=== PATIENT | male | born 1940 | race Caucasian/White ===

== ENCOUNTER 2017-07-04 02:43 | Emergency (ER) | payer MEDICARE, OTHER ==
--- NOTE | 2017-07-04 03:02 | ERPHSYRPT ---
- History of Present Illness Time Seen by Provider: 07/04/17 02:58 Source: patient, family Patient Subjective Stated Complaint: Pt arrives to ER with c/o tongue swelling that began at 2300 and states has become worse over night states has swelling into right cheek. Denies difficulty breathing or swallowing at this time. States is uncomfortable Triage Nursing Assessment: minor tongue swelling, non-obstructive. Airway patent. This RN cannot appreciate any swelling to face. Physician History: This is a 76-year-old white male with history of high blood pressure diabetes arthritis polyps He arrives with complaint of swelling to the right side of his tongue since 11: 00 this evening. He states that he had eaten a gas ex tablets prior to onset of the swelling. He has no shortness of breath. He has no skin rash. . Past medical history includes high blood pressure, diabetes type 2, arthritis , polyps, kidney stones, patient's old chart shows a history of left venous stasis ulcers, patient disputes this.also history of femoral aneurisms. Past surgical history includes right rotator cuff degenerative disc disease of the neck sinus surgery and knee arthroscopically Timing/Duration: other (11:00 last night) Severity: moderate Modifying Factors: Improves With: nothing Associated Symptoms: No nausea, No vomiting, No abdominal pain, No shortness of breath, No heartburn, No diaphoresis, No cough, No chills, No chest pain, No fever, No headaches, No loss of appetite, No malaise, No rash, No syncope, No seizure Allergies/Adverse Reactions: Sulfa (Sulfonamide Antibiotics) [Sulfa(Sulfonamide Antibiotics)] Allergy (Mild, Verified 07/04/17 02:55) Rash codeine [Codeine] Allergy (Unknown, Verified 07/04/17 02:55) Shortness of Breath Home Medications: Acetaminophen 325 mg [Tylenol 325 mg] 650 mg PO STAT 10/23/15 [History] Allopurinol 300 mg [Zyloprim 300 mg] 300 mg PO DAILY 10/23/15 [History] Aspirin 81 mg PO DAILY 10/23/15 [History] Carvedilol [Coreg] 6.25 mg PO BID 10/23/15 [History] Desonide 15 gm TP DAILY 10/23/15 [History] Furosemide 40 mg [Lasix 40 MG] 40 mg PO DAILY 10/23/15 [History] Isosorbide Mononitrate [Isosorbide Mononitrate ER] 60 mg PO DAILY 10/23/15 [ History] Lisinopril 40 mg PO BID 10/23/15 [History] Magnesium Oxide [Magnesium] 400 mg PO DAILY 10/23/15 [History] Potassium Chloride 20 Meq Tab [Potassium Chloride 20 MEQ TABLET] 20 meq PO DAILY 10/23/15 [History] Fluticasone Propionate [Flonase Nasal] 50 mcg IN Q12H PRN PRN 07/04/17 [History] Hx Tetanus, Diphtheria Vaccination/Date Given: Yes Hx Influenza Vaccination/Date Given: No Hx Pneumococcal Vaccination/Date Given: No - Review of Systems Constitutional: No Fever, No Chills Eyes: No Symptoms Ears, Nose, & Throat: Other (swelling of the tongue) Respiratory: No Cough, No Dyspnea Cardiac: No Chest Pain, No Edema, No Syncope Abdominal/Gastrointestinal: No Abdominal Pain, No Nausea, No Vomiting, No Diarrhea Genitourinary Symptoms: No Dysuria Musculoskeletal: No Back Pain, No Neck Pain Skin: No Rash Neurological: No Dizziness, No Focal Weakness, No Sensory Changes Psychological: No Symptoms Endocrine: No Symptoms All Other Systems: Reviewed and Negative - Past Medical History Pertinent Past Medical History: Yes Neurological History: No Pertinent History ENT History: Cataracts Cardiac History: Aneurysm, Hypertension Respiratory History: No Pertinent History Endocrine Medical History: Diabetes Type II Musculoskeletal History: Arthritis GI Medical History: Polyps History: Other Psycho-Social History: No Pertinent History Male Reproductive Disorders: No Pertinent History Other Medical History: kidney stones. left leg venous STASIS ULCER - Past Surgical History Past Surgical History: Yes Neuro Surgical History: No Pertinent History Cardiac: No Pertinent History Respiratory: No Pertinent History Gastrointestinal: No Pertinent History Genitourinary: No Pertinent History Musculoskeletal: Orthopedic Surgery Male Surgical History: No Pertinent History Other Surgical History: right rotator cuff. melanoma right shoulder. c6 herniated repair. c7 ruptured repair. sinus surgery. 2 left knee scopes. 1 right knee scope. right hip replace. Femoral artery aneurysm repair - Social History Smoking Status: Never smoker Exposure to second hand smoke: No Drug Use: none Patient Lives Alone: No - Nursing Vital Signs Nursing Vital Signs: Initial Vital Signs Temperature 98.7 F 07/04/17 02:48 Pulse Rate 86 07/04/17 02:48 Respiratory Rate 18 07/04/17 02:48 Blood Pressure 183/120 07/04/17 02:48 O2 Sat by Pulse Oximetry 95 07/04/17 02:48 Pain Scale Pain Intensity 5 - Physical Exam General Appearance: mild distress Eye Exam: PERRL/EOMI, eyes nml inspection Ears, Nose, Throat Exam: other (swelling of the right side of the tongue) Neck Exam: normal inspection, non-tender, supple, full range of motion Respiratory Exam: normal breath sounds, lungs clear, No respiratory distress Cardiovascular Exam: regular rate/rhythm, normal heart sounds, normal peripheral pulses Gastrointestinal/Abdomen Exam: soft, normal bowel sounds, No tenderness, No mass Back Exam: normal inspection, normal range of motion, No CVA tenderness, No vertebral tenderness Extremity Exam: normal inspection, normal range of motion, pelvis stable Neurologic Exam: alert, oriented x 3, cooperative, cook supervisor II-XII nml as tested, normal mood/affect, nml cerebellar function, nml station & gait, sensation nml, No motor deficits Skin Exam: normal color, warm, dry, No rash Lymphatic Exam: No adenopathy SpO2 Interpretation: normal (95%) SpO2: 95 Oxygen Delivery: Room Air - Course Nursing assessment & vital signs reviewed: Yes EKG Interpreted by Me: RATE (85 bpm), Sinus Rhythm, NORMAL AXIS, Other (EKG: Sinus rhythm 85 beats per minute, normal axis, no acute ST or T wave changes, essentially normal EKG) Ordered Tests: Active Orders 24 hr Category Date Time Status EKG-ER Only STAT Care 07/04/17 02:52 Active IV Insertion STAT Care 07/04/17 02:52 Active CBC W DIFF Stat Lab 07/04/17 03:00 Completed CMP Stat Lab 07/04/17 03:00 Completed Respiratory Nebulizer STAT RT 07/04/17 03:10 Completed Medication Summary Generic Name Dose Route Start Last Admin Trade Name Freq PRN Reason Stop Dose Admin Sodium Chloride 1,000 mls @ 100 mls/hr 07/04/17 03:00 07/04/17 03:23 Sodium Chloride 0.9% 1000 Ml IV 08/03/17 02:59 100 mls/hr .Q10H VIRI Administration Discontinued Medications Generic Name Dose Route Start Last Admin Trade Name Freq PRN Reason Stop Dose Admin Clonidine 0.1 mg 07/04/17 05:00 07/04/17 05:06 Catapres 0.1 Mg PO 07/04/17 05:01 0.1 mg STAT ONE Administration Clonidine Confirm 07/04/17 05:03 Catapres 0.1 Mg Administered 07/04/17 05:04 Dose 0.1 mg .ROUTE .STK-MED ONE Diphenhydramine HCl 25 mg 07/04/17 02:52 07/04/17 03:23 Benadryl 50 Mg/Ml IV 07/04/17 02:53 25 mg STAT ONE Administration Diphenhydramine HCl Confirm 07/04/17 03:13 Benadryl 50 Mg/Ml Administered 07/04/17 03:14 Dose 50 mg .ROUTE .STK-MED ONE Diphenhydramine HCl Confirm 07/04/17 03:22 Benadryl 50 Mg/Ml Administered 07/04/17 03:23 Dose 50 mg .ROUTE .STK-MED ONE Diphenhydramine HCl 25 mg 07/04/17 03:14 07/04/17 04:12 Benadryl 50 Mg/Ml IV 07/04/17 03:15 Not Given STAT ONE Diphenhydramine HCl 25 mg 07/04/17 03:26 07/04/17 03:23 Benadryl 50 Mg/Ml IV 07/04/17 03:27 25 mg STAT ONE Administration Epinephrine Confirm 07/04/17 03:35 Racepinephrine Inh Solution 2.25% Administered 07/04/17 03:36 Dose 0.5 ml IH .STK-MED ONE Epinephrine 0.5 ml 07/04/17 03:08 07/04/17 03:38 Racepinephrine Inh Solution 2.25% IH 07/04/17 03:09 0.5 ml STAT ONE Administration Famotidine Confirm 07/04/17 03:13 Pepcid 20 Mg Vial Administered 07/04/17 03:14 Dose 20 mg IV .STK-MED ONE Famotidine 20 mg 07/04/17 03:12 07/04/17 03:23 Pepcid 20 Mg Vial IV 07/04/17 03:13 20 mg STAT ONE Administration Methylprednisolone Sodium Succinate 125 mg 07/04/17 02:52 07/04/17 03:23 Solu-Medrol 125 Mg IV 07/04/17 02:53 125 mg STAT ONE Administration Methylprednisolone Sodium Succinate Confirm 07/04/17 03:13 Solu-Medrol 125 Mg Administered 07/04/17 03:14 Dose 125 mg .ROUTE .STK-MED ONE Sodium Chloride Confirm 07/04/17 03:35 Sodium Chloride 3 Ml Ud Nebules Administered 07/04/17 03:36 Dose 3 ml IH .STK-MED ONE Lab/Rad Data: Laboratory Result Diagrams 07/04/17 03:00 07/04/17 03:00 Laboratory Results 07/04/17 07/04/17 Range/Units 03:00 03:00 WBC 7.9 (4.0-10.5) K/mm3 RBC 4.29 (4.1-5.6) M/mm3 Hgb 13.6 (12.5-18.0) gm/dl Hct 39.9 L (42-50) % MCV 93.0 (78-100) fl MCH 31.7 (26-32) pg MCHC 34.1 (32-36) g/dl RDW 13.7 (11.5-14.0) % Plt Count 184 (150-450) K/mm3 MPV 11.2 H (6-9.5) fl Gran % 72.5 H (36.0-66.0) % Eos # (Auto) 0.16 (0-0.5) Absolute Lymphs (auto) 1.33 (1.0-4.6) Absolute Monos (auto) 0.64 (0.0-1.3) Lymphocytes % 16.9 L (24.0-44.0) % Monocytes % 8.1 (0.0-12.0) % Eosinophils % 2.0 (0.00-5.0) % Basophils % 0.5 (0.0-0.4) % Absolute Granulocytes 5.70 (1.4-6.9) Basophils # 0.04 (0-0.4) Sodium 138 (137-145) mmol/L Potassium 4.0 (3.5-5.1) mmol/L Chloride 102 (98-107) mmol/L Carbon Dioxide 26 (22-30) mmol/L Anion Gap 14.4 (5-15) MEQ/L BUN 26 H (9-20) mg/dL Creatinine 0.94 (0.66-1.25) mg/dL Estimated GFR > 60.0 ML/MIN Glucose 168 H (74-106) mg/dL Calcium 9.4 (8.4-10.2) mg/dL Total Bilirubin 0.40 (0.2-1.3) mg/dL AST 33 (17-59) U/L ALT 43 (0-50) U/L Alkaline Phosphatase 77 (38-126) U/L Serum Total Protein 7.2 (6.3-8.2) g/dL Albumin 4.2 (3.5-5.0) g/dL - Progress Progress: improved Progress Note: 07/04/17 05:01 This is a 76-year-old white male with history of diabetes high blood pressure arthritis polyps kidney stones he arrives with complaint of swelling of the right side of his tongue since around 11:00. He stated that he had taken Gas-X tablet prior to beginning the swelling. It is noted that the patient is on lisinopril. On arrival patient had a moderate swelling of the right side of his tongue airway was clear. Patient was given Benadryl 50 mg IV, Pepcid 20 mg IV,. Patient was given a racemic epinephrine treatment. Patient started on normal saline 100 mL per hour. Patient is now feeling much better patient's blood pressure was initially elevated at 183/120 patient's family does state he has some time to white coat syndrome blood pressure has come down to 173/98. He is feeling much better. I have repeated the patient's chart he is coming here in the past he has received clonidine in the past Will give patient 1 clonidine tablet. Will plan on patient released turning home he is to take Benadryl 50 mg orally every 6 hours hold for excessive somnolence. Patient states that Dr. Daley prescribes his high blood pressure medications. I contacted Dr. Garcia, who was tong hooker for And of discussed the patient's case with him. He recommended that the patient stop his lisinopril. He is to increase his Coreg to 12.5 mg orally twice a day He is to start Norvasc 10 mg orally daily. He is to follow-up with Dr. London in one week. (The patient's will contact Dr. London's office this morning) Will have patient continue Benadryl - Departure Time of Disposition: 05:05 Departure Disposition: Home Clinical Impression: Angioedema Qualifiers: Encounter type: initial encounter Qualified Code(s): T78.3XXA - Angioneurotic edema, initial encounter Condition: Fair Critical Care Time: No Referrals: PACHECO SRINIVASAN [Primary Care Provider] - Additional Instructions: Return home. Benadryl 50 mg orally every 6 hours for 2-3 days hold for excessive somnolence. Contact Dr. Daley in the morning and arrange follow-up . Return for acute distress or for severe symptoms or for any problems. stop lisinopril. Increase Coreg to 12.5 mg orally twice a day(two 6.25 mg orally twice a day) Start Norvasc 10 mg orally daily. Prescriptions: Amlodipine Besylate 10 mg [Norvasc 10 MG] 10 mg PO DAILY #15 tablet
[2017-07-04] MEDS ORDERED: BENADRYL 50 MG/ML ONE ×2 (03:13→03:22)
[2017-07-04] MEDS ORDERED: Sodium Chloride 0.9% 1000 ML 1,000 ML ONE (03:13)
[2017-07-04] MEDS ORDERED: solu-MEDROL 125 MG ONE (03:13)
[2017-07-04] MEDS ORDERED: Pepcid 20 MG VIAL IV ONE (03:13)
[2017-07-04 03:17] LABS: BASOPHIL % 0.5 % (0.0-0.4); Basophil (Absolute #) 0.04 (0-0.4); Eosinophil (Absolute #) 0.16 (0-0.5); Granulocytes % 72.5 % (36.0-66.0); Hematocrit 39.9 % (42-50); Hemoglobin 13.6 gm/dl (12.5-18.0); Lymphocyte (Absolute #) 1.33 (1.0-4.6); Lymphocytes % 16.9 % (24.0-44.0); Mean Corpuscular Hemoglobin 31.7 pg (26-32); Mean Corpuscular Hgb Concent. 34.1 g/dl (32-36); Mean Platelet Volume 11.2 fl (6-9.5); Monocyte (Absolute #) 0.64 (0.0-1.3); Monocytes % 8.1 % (0.0-12.0); Platelet Count 184 K/mm3 (150-450); Red Blood Count 4.29 M/mm3 (4.1-5.6); Red Cell Distribution Width 13.7 % (11.5-14.0); White Blood Count 7.9 K/mm3 (4.0-10.5)
[2017-07-04] MEDS: Pepcid 20 MG VIAL IV ONE (03:23)
[2017-07-04] MEDS: solu-MEDROL 125 MG IV ONE (03:23)
[2017-07-04] MEDS: Sodium Chloride 0.9% 1000 ML 1,000 ML IV SCH (03:23)
[2017-07-04] MEDS: BENADRYL 50 MG/ML IV ONE ×3 (03:23→04:12)
[2017-07-04] MEDS ORDERED: Sodium Chloride 3 ML UD NEBULES IH ONE (03:35)
[2017-07-04] MEDS ORDERED: Racepinephrine INH Solution 2.25% IH ONE (03:35)
[2017-07-04 03:38] LABS: ALBUMIN 4.2 g/dL (3.5-5.0); ALKALINE PHOSPHATASE 77 U/L (38-126); ANION GAP 14.4 MEQ/L (5-15); BLOOD UREA NITROGEN 26 mg/dL (9-20); CHLORIDE 102 mmol/L (98-107); Calcium 9.4 mg/dL (8.4-10.2); Carbon Dioxide 26 mmol/L (22-30); Creatinine 1 0.94 mg/dL (0.66-1.25); Glucose 168 mg/dL (74-106); SGOT/AST 33 U/L (17-59); SGPT/ALT 43 U/L (0-50); SODIUM 138 mmol/L (137-145); Total Protein 7.2 g/dL (6.3-8.2)
[2017-07-04] MEDS: Racepinephrine INH Solution 2.25% IH ONE (03:38)
[2017-07-04] MEDS ORDERED: Catapres 0.1 MG ONE (05:03)
[2017-07-04] MEDS: Catapres 0.1 MG PO ONE (05:06)
[2017-07-04 05:34] VITALS: BP 162/90; PULSE 83; O2SAT 94
== END 2017-07-04 05:46 | disposition home or self-care (01) ==
LOC: ED 02:43
DX: T78.3XXA Angioneurotic edema, initial encounter (principal); Z79.899 Other long term (current) drug therapy
CPT/HCPCS: 36000; 36415; 80053; 85025; 93005; 94640; 96374; 96375; 99284; J1200; J2930; A9270-GY

== ENCOUNTER 2020-07-26 22:18 | Emergency (ER) | payer MEDICARE, OTHER ==
[2020-07-26] MEDS ORDERED: Hydromorphone 1 mg/ml Injection IV ONE (22:39)
[2020-07-26] MEDS ORDERED: Zofran 4 MG/2 ML VIAL IV ONE (22:40)
[2020-07-26] MEDS ORDERED: Zofran 4 MG/2 ML VIAL ONE (22:56)
[2020-07-26] MEDS ORDERED: Hydromorphone 1 mg/ml Injection ONE (22:56)
[2020-07-26 23:10] LABS: Appearance CLEAR (CLEAR); Bilirubin NEGATIVE (NEGATIVE); Blood NEGATIVE Ery/ul (0-5); Glucose NEGATIVE (NEGATIVE); Ketones NEGATIVE (NEGATIVE); Leukocyte Esterase TRACE (NEGATIVE); Mucus SLIGHT /HPF (NEGATIVE); Nitrite NEGATIVE (NEGATIVE); Protein,Urine Dip NEGATIVE (Negative); Specific Gravity 1.025 (1.005-1.025); Urobilinogen 2 mg/dL (0-1)
--- NOTE | 2020-07-26 23:14 | ERPHSYRPT ---
- History of Present Illness Source: patient, other () Exam Limitations: no limitations Patient Subjective Stated Complaint: pt states "I was bending down and twisted my back." Triage Nursing Assessment: pt came into the er; pt is axo x4; c/o lower back pain; pt states 10/10 pain to lower back; pt states that his back began to hurt a week prior; pt states that he was bending over drying off his legs when he twisted his back; pt states that he has history of ruptured discand herniated disc; pt has limited ROM to back; tenderness present to lower back; hypertensive Physician History: 79 yo wm w Lumbar pain x 1 wk which is worse tonight. Pain to the left of his inferior L-spine and is rated a 10 on scale. It radiates slightly to his L buttock. He denies dysuria/hematuria/fever/N/V/chest pain/shortness of breath. He played golf 4 days ago, and his pain has progressed. It is worse w bending. He does have a h/o of aneurism repair in proximal B extremities and possibly, in his abdomen. He denies incontinence/foot drop/decreased sensation. Timing/Duration: other (1wk, worse over last 1-2 days) Method of Injury: unknown Quality: sharp Back Pain Location: lumbar spine Back Pain Radiation: buttocks Severity of Pain-Max: severe Severity of Pain-Current: severe Modifying Factors: Improves With: movement (Twisting) Associated Symptoms: lower back pain, No fever, No chills, No sweating, No urinary incontinence, No loss of bowel control, No constipation, No nausea, No vomiting, No problems urinating, No light-headedness, No dizziness, No sensory/motor loss, No tingling in legs/feet, No muscle spasms Previous symptoms: no prior history Allergies/Adverse Reactions: Sulfa (Sulfonamide Antibiotics) [Sulfa(Sulfonamide Antibiotics)] Allergy (Mild, Verified 07/26/20 22:21) Rash codeine [Codeine] Allergy (Unknown, Verified 07/26/20 22:21) Shortness of Breath Home Medications: Allopurinol 300 mg [Zyloprim 300 mg] 300 mg PO DAILY 10/23/15 [History] Aspirin 81 mg PO DAILY 10/23/15 [History] Carvedilol [Coreg] 6.25 mg PO TID 10/23/15 [History] Furosemide 40 mg [Lasix 40 MG] 40 mg PO DAILY 10/23/15 [History] Isosorbide Mononitrate [Isosorbide Mononitrate ER] 60 mg PO DAILY 10/23/15 [History] Magnesium Oxide [Magnesium] 400 mg PO DAILY 10/23/15 [History] Potassium Chloride 20 Meq Tab [Potassium Chloride 20 MEQ TABLET] 20 meq PO DAILY 10/23/15 [History] Acetaminophen 500 mg [Tylenol Extra Strength 500 mg] 500 mg PO DAILY PRN PRN 07/26/20 [History] Amlodipine Besylate 10 mg [Norvasc 10 MG] 5 mg PO DAILY 07/26/20 [History] Ammonium Lactate/Emu Oil [Emu-Lac Hydrating Cream] 20 ml TOP DAILY 07/26/20 [History] Atorvastatin Calcium 20 mg PO DAILY 07/26/20 [History] Docusate Sodium 100 mg [Colace 100 MG] 100 mg PO BID 07/26/20 [History] Metformin HCl 500 mg [Glucophage 500 MG] 500 mg PO BID 07/26/20 [History] Mirabegron [Myrbetriq] 25 mg PO DAILY 07/26/20 [History] Psyllium Husk [Metamucil] 100 gm PO DAILY 07/26/20 [History] Tamsulosin HCl 0.4 mg [Flomax 0.4 MG] 0.4 mg PO DAILY 07/26/20 [History] Hx Tetanus, Diphtheria Vaccination/Date Given: Yes (2010) Hx Influenza Vaccination/Date Given: Yes Hx Pneumococcal Vaccination/Date Given: No (2018) Travel Risk - International Travel Have you traveled outside of the country in past 3 weeks: No - Coronavirus Screening Are you exhibiting any of the following symptoms?: No Close contact with a COVID-19 positive Pt in past 14-21 Days: No - Vaccine Status Have you recieved a Covid-19 vaccination: Yes Underground Conduit Installer: Moderna - Vaccination Dates Date of 2cond Vaccination (if applicable): 04/15/20 - Review of Systems Constitutional: No Symptoms Eyes: No Symptoms Ears, Nose, & Throat: No Symptoms Respiratory: No Symptoms Cardiac: No Symptoms Abdominal/Gastrointestinal: No Symptoms Genitourinary Symptoms: No Symptoms Musculoskeletal: No Symptoms, Back Pain Skin: No Symptoms Neurological: No Symptoms Psychological: No Symptoms Endocrine: No Symptoms Hematologic/Lymphatic: No Symptoms Immunological/Allergic: No Symptoms - Past Medical History Pertinent Past Medical History: Yes Neurological History: No Pertinent History ENT History: Cataracts Cardiac History: Hypertension Respiratory History: No Pertinent History Endocrine Medical History: Diabetes Type II Musculoskeletal History: Osteoarthritis, Other GI Medical History: Polyps History: Other Psycho-Social History: No Pertinent History Male Reproductive Disorders: No Pertinent History Other Medical History: SX HX - BICEPS TENDON AND RTC REPAIR 2011, RIGHT THR 2014, ANEURYSM (LEFT FEMORAL X 3, RIGHT ILIAC, AND ABDOMINAL) REPAIRS, NECK SURGERY (RUPTURED DISCS), HX OF SCOPES BOTH KNEES, SINUS, SURGERY FOR MELENOMA REMOVAL. PMHX: KIDNEY STONES (ON ALLOPURINOL) - Past Surgical History Past Surgical History: Yes Neuro Surgical History: No Pertinent History Cardiac: No Pertinent History Respiratory: No Pertinent History Gastrointestinal: No Pertinent History Genitourinary: No Pertinent History Musculoskeletal: Orthopedic Surgery Male Surgical History: No Pertinent History Other Surgical History: right rotator cuff. melanoma right shoulder. c6 herniated repair. c7 ruptured repair. sinus surgery. aneurysm- femoral artery. rt hip replacement. aneurysm left femoral, rt internal iliac, abd aorta. mohs surgery x2. 2 left knee scopes. 1 right knee scope. right hip replace. Femoral artery aneurysm repair. left knee replacement - Social History Smoking Status: Never smoker Exposure to second hand smoke: No Drug Use: none Patient Lives Alone: No Significant Family History: no pertinent family hx - Nursing Vital Signs Nursing Vital Signs: Initial Vital Signs Temperature 99 F 07/26/20 22:21 Pulse Rate 75 07/26/20 22:21 Respiratory Rate 24 07/26/20 22:21 Blood Pressure 172/91 07/26/20 22:21 O2 Sat by Pulse Oximetry 96 07/26/20 22:21 Pain Scale Pain Intensity [] 10 Pain Intensity 3 Hypertensive - Physical Exam General Appearance: no apparent distress (In pain) Eye Exam: PERRL/EOMI, eyes nml inspection Ears, Nose, Throat Exam: normal ENT inspection, TMs normal, pharynx normal, moist mucous membranes Neck Exam: normal inspection, non-tender, supple, full range of motion, No meningismus, No mass, No Brudzinski, No Kernig's, No carotid bruit Respiratory Exam: normal breath sounds, lungs clear, airway intact, No respiratory distress Cardiovascular Exam: regular rate/rhythm, normal heart sounds, normal peripheral pulses, No murmur Gastrointestinal Exam: soft, normal bowel sounds, No tenderness, No pulsatile mass Back Exam: vertebral tenderness (Inferior L-spine and L paraspinous muscles TTP) Extremity Exam: normal inspection, normal range of motion Neurologic Exam: alert, oriented x 3, cooperative, reading professor II-XII nml as tested, normal mood/affect, nml cerebellar function, sensation nml, No motor deficits Skin Exam: normal color, warm, dry, No rash Lymphatic Exam: No adenopathy SpO2 Interpretation: normal SpO2: 96 O2 Delivery: Room Air - CT Exams Abdomen/Pelvis CT Interpretation: Tele-radiologist Report (RLL atelectasis vs infiltrate/Aortic bifem graft/AAA no change/RIH wo bowel) Ordered Tests: Active Orders 24 hr Category Date Time Status ABDOMEN AND PELVIS W/0 CONTRAS [CT] Stat Exams 07/27/20 12:10 Taken UA W/RFX UR CULTURE Stat Lab 07/26/20 23:01 Completed Medication Summary Discontinued Medications Generic Name Dose Route Start Last Admin Trade Name Freq PRN Reason Stop Dose Admin Hydromorphone HCl 0.5 mg 07/26/20 22:39 07/26/20 23:40 Hydromorphone 1 Mg/Ml Injection IV 07/26/20 22:40 0.5 mg STAT ONE Administration Hydromorphone HCl Confirm 07/26/20 22:56 Hydromorphone 1 Mg/Ml Injection Administered 07/26/20 22:57 Dose 1 mg .ROUTE .STK-MED ONE Ondansetron HCl 4 mg 07/26/20 22:40 07/26/20 23:35 Zofran 4 Mg/2 Ml Vial IV 07/26/20 22:41 4 mg STAT ONE Administration Ondansetron HCl Confirm 07/26/20 22:56 Zofran 4 Mg/2 Ml Vial Administered 07/26/20 22:57 Dose 4 mg .ROUTE .STK-MED ONE Lab/Rad Data: Laboratory Results 07/26/20 Range/Units 23:01 Urine Color YELLOW (YELLOW) Urine Appearance CLEAR (CLEAR) Urine pH 6.0 (5-6) Ur Specific [place] 1.025 (1.005-1.025) Urine Protein NEGATIVE (Negative) Urine Ketones NEGATIVE (NEGATIVE) Urine Blood NEGATIVE (0-5) Randy/ul Urine Nitrite NEGATIVE (NEGATIVE) Urine Bilirubin NEGATIVE (NEGATIVE) Urine Urobilinogen 2 (0-1) mg/dL Ur Leukocyte Esterase TRACE (NEGATIVE) Urine WBC (Auto) 3-5 (0-5) /HPF Urine RBC (Auto) NONE (0-2) /HPF U Epithel Cells (Auto) NONE (FEW) /HPF Urine Bacteria (Auto) NONE (NEGATIVE) /HPF Urine Mucus (Auto) SLIGHT (NEGATIVE) /HPF Urine Culture Reflexed NO (NO) Urine Glucose NEGATIVE (NEGATIVE) mg/dL - Progress Progress: improved Progress Note: 07/27/20 01:41 0.5mg IV Dilaudid w improvement 07/27/20 03:01 Pt w mild drop in Sats after dilaudid, so 2L NC applied. By discharge, he had good Sats and a good airway. Counseled pt/family regarding: lab results, diagnosis, need for follow-up, rad results - Departure Departure Disposition: Home Clinical Impression: Lumbar strain Condition: Stable Critical Care Time: No Referrals: JOSIAS DELEON [Primary Care Provider] - Instructions: Low Back Pain (DC) Additional Instructions: Rest/Heat/Massage Follow up with your family MD for continued pain Terrell/norflex as needed for pain Return to ER for increasing pain or temperature greater than 100.5 Prescriptions: Hydrocodone/Acetaminophen [Hydrocodone-Acetamin 5-325 mg] 1 tab PO Q6HPRN PRN #8 tablet MDD 4 PRN Reason: Pain Orphenadrine Citrate 100 mg [Norflex 100 MG Tablet] 100 mg PO BID PRN #10 tab PRN Reason: Pain
[2020-07-27 02:09] VITALS: BP 152/78; PULSE 79
[2020-07-27 03:04] VITALS: O2SAT 96
--- NOTE | 2020-07-27 09:08 | XRAY ---
Indication: Low back and abdomen pain. History renal stones. Multiple contiguous axial images obtained through the abdomen and pelvis without contrast. Comparison: July 09, 2019. Lung bases again demonstrates right hemidiaphragm elevation with adjacent atelectasis. Stable pulmonary and subcarinal calcified granulomas. Heart is not enlarged. Noncontrasted stomach and bowel loops remain nonobstructed. Normal appendix. There remains mild diffuse scattered colonic fecal debris throughout and sigmoid diverticulosis. Stable nonobstructing bilateral renal micro-calculi, large right renal cyst, splenic calcified granulomas, AAA with aortoiliac stent grafts, and large left pelvis aneurysm with multiple aneurysm coils. No free fluid/air. Remaining liver, gallbladder, pancreas, spleen, adrenal glands, kidneys, ureters, and bladder are unremarkable for noncontrast exam. Osseous structures intact again with osteopenia, multilevel degenerative spondylosis, left hip degenerative arthropathy, and right total hip arthroplasty. Stable large fatty right inguinal hernia. Impression: 1. Again diffuse fecal stasis with colonic diverticulosis. 2. Grossly stable AAA with aortoiliac stent grafts and deep left pelvis aneurysm with aneurysm coils. 3. Again incidental nonobstructing bilateral renal micro-calculi, right renal cyst, right hemidiaphragm elevation with atelectasis, fatty right inguinal hernia, and chronic bony findings. Comment: Preliminary interpretation was made by [facility]. No critical discrepancy.
== END 2020-07-27 01:57 | disposition home or self-care (01) ==
LOC: ED 22:18
DX: S39.012A Strain of muscle, fascia and tendon of lower back, initial encounter (principal); X50.1XXA Overexertion from prolonged static or awkward postures, initial encounter; Y93.89 Activity, other specified; Y92.89 Other specified places as the place of occurrence of the external cause; Y99.8 Other external cause status; M54.5 Low back pain
CPT/HCPCS: 36000; 74176; 81001; 96374; 96375; 99284; J1170; J2405

== ENCOUNTER 2022-09-03 07:48 | Emergency (ER) | payer MEDICARE, OTHER ==
[2022-09-03 08:41] LABS: Absolute Neutrophil Ct (ANC) 4.93 x10^3/uL (1.4-6.9); BASOPHIL % 0.5 % (0.0-0.4); Basophil (Absolute #) 0.04 x10^3/uL (0-0.4); Eosinophil % 0.8 % (0.00-5.0); Eosinophil (Absolute #) 0.06 x10^3/uL (0-0.5); Hematocrit 38.2 % (42-50); Hemoglobin 12.4 g/dL (12.5-18.0); IMMATURE GRAN # 0.07 x10^3u/L (0.00-0.03); IMMATURE GRAN % 0.9 % (0.00-0.4); Lymphocyte (Absolute #) 1.93 x10^3/uL (1.0-4.6); Mean Cell Volume 96.5 fL (78-100); Mean Corpuscular Hemoglobin 31.3 pg (26-32); Mean Corpuscular Hgb Concent. 32.5 g/dL (32-36); Mean Platelet Volume 10.7 fL (7.5-11.0); Monocyte (Absolute #) 0.69 x10^3/uL (0.0-1.3); Monocytes % 8.9 % (0.0-12.0); Neutrophil % 63.9 % (36.0-66.0); Platelet Count 177 x10^3/uL (150-450); Red Blood Count 3.96 x10^6/uL (4.1-5.6); Red Cell Distribution Width 14.1 % (11.5-14.0); White Blood Count 7.7 x10^3/uL (4.0-10.5)
[2022-09-03] MEDS ORDERED: MORPHINE SULFATE 4 MG INJ IV ONE (08:43)
[2022-09-03] MEDS ORDERED: Zofran 4 MG/2 ML VIAL IV ONE (08:43)
[2022-09-03] MEDS ORDERED: Zofran 4 MG/2 ML VIAL ONE (08:53)
[2022-09-03] MEDS ORDERED: MORPHINE SULFATE 4 MG INJ ONE (08:53)
[2022-09-03 09:02] LABS: ALKALINE PHOSPHATASE 76 U/L (38-126); AMYLASE 66 U/L (30-110); ANION GAP 10.6 MEQ/L (5-15); BLOOD UREA NITROGEN 27 mg/dL (9-20); CHLORIDE 100 mmol/L (98-107); Calcium 9.1 mg/dL (8.4-10.2); Carbon Dioxide 29 mmol/L (22-30); Creatinine 1 0.73 mg/dL (0.66-1.25); EST GLOMERULAR FILTRATION RATE > 60.0 ML/MIN; Glucose 133 mg/dL (74-106); LIPASE 182 U/L (23-300); Potassium 3.5 mmol/L (3.5-5.1); SGOT/AST 27 U/L (17-59); SGPT/ALT 41 U/L (0-50); SODIUM 136 mmol/L (137-145); Total Protein 6.9 g/dL (6.3-8.2)
--- NOTE | 2022-09-03 09:58 | ERPHSYRPT ---
- History of Present Illness Time Seen by Provider: 09/03/22 08:41 Historian: patient Exam Limitations: no limitations Patient Subjective Stated Complaint: C/O hematuria with left flank pain Triage Nursing Assessment: Patient brought back to ED in W/C. He is alert and oriented. Hard of hearing; hearing aids present to both ears. No SOB. Displays s/s of pain when attempting to put legs into bed; indicates pain is to his left flank. Skin tone normal to flank area; no skin alterations. Patient states he has a history of kidney stones and he feels like this is what is going on. Physician History: 81 years old male with multiple medical problems including back pain presented in the ER with chief complaint of left flank/back pain for the last few days with progressive worsening. Patient was seen outpatient and was given tramadol with no significant relief and pain got really worse this morning. Patient reports moderate to severe sharp pain right flank along lumbar paraspinal area. Denies any radiation to left lower extremity. No numbness tingling or weakness of lower extremities. Denies any loss of bowel or bladder control/perineal numbness. Patient did notice some hematuria this morning. Reports symptoms similar to last time when he had a kidney stone. Timing/Duration: day(s) (4), intermittent, gradual onset, worse Activities at Onset: rest Quality: sharpness Abdominal Pain Onset Location: flank Pain Radiation: back Severity of Pain-Max: severe Severity of Pain-Current: severe Modifying Factors: Worsens With: movement, palpation Associated Symptoms: back, No headache, No nausea, No vomiting Previous symptoms: same symptoms as today Allergies/Adverse Reactions: codeine [Codeine] Allergy (Unknown, Verified 09/03/22 08:01) Shortness of Breath Sensitive to codeine lisinopril Allergy (Verified 09/03/22 08:01) Home Medications: Allopurinol 300 mg [Zyloprim 300 mg] 300 mg PO DAILY 10/23/15 [History] Aspirin 81 mg PO DAILY 10/23/15 [History] Furosemide 40 mg [Lasix 40 MG] 40 mg PO DAILY 10/23/15 [History] Isosorbide Mononitrate [Isosorbide Mononitrate ER] 60 mg PO DAILY 10/23/15 [History] Magnesium Oxide [Magnesium] 400 mg PO DAILY 10/23/15 [History] Potassium Chloride 20 Meq Tab [Potassium Chloride 20 MEQ TABLET] 20 meq PO DAILY 10/23/15 [History] Acetaminophen 500 mg [Tylenol Extra Strength 500 mg] 500 mg PO DAILY PRN PRN 07/26/20 [History] Amlodipine Besylate 10 mg [Norvasc 10 MG] 5 mg PO DAILY 07/26/20 [History] Ammonium Lactate/Emu Oil [Emu-Lac Hydrating Cream] 20 ml TOP DAILY 07/26/20 [History] Atorvastatin Calcium 20 mg PO HS 07/26/20 [History] Metformin HCl 500 mg [Glucophage 500 MG] 500 mg PO BID 07/26/20 [History] Mirabegron [Myrbetriq] 25 mg PO DAILY 07/26/20 [History] Psyllium Husk [Metamucil] 100 gm PO DAILY 07/26/20 [History] Tamsulosin HCl 0.4 mg [Flomax 0.4 MG] 0.4 mg PO DAILY 07/26/20 [History] Carvedilol [Coreg ] 1 tab PO DAILY 09/03/22 [History] Carvedilol 12.5 mg [Coreg 12.5 mg] 1 tab PO HS 09/03/22 [History] Hx Tetanus, Diphtheria Vaccination/Date Given: Yes Hx Influenza Vaccination/Date Given: Yes Hx Pneumococcal Vaccination/Date Given: Yes Immunizations Up to Date: Yes Travel Risk - International Travel Have you traveled outside of the country in past 3 weeks: No - Coronavirus Screening Are you exhibiting any of the following symptoms?: No Close contact with a COVID-19 positive Pt in past 14-21 Days: No - Vaccine Status Have you recieved a Covid-19 vaccination: Yes 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 - Vaccination Dates Date of 2cond Vaccination (if applicable): 04/15/20 - Review of Systems Constitutional: No Symptoms Eyes: No Symptoms Ears, Nose, & Throat: No Symptoms Respiratory: No Symptoms Cardiac: No Symptoms Abdominal/Gastrointestinal: Abdominal Pain - Past Medical History Pertinent Past Medical History: Yes Neurological History: No Pertinent History ENT History: Cataracts Cardiac History: Aneurysm, Coronary Artery Disease, High Cholesterol, Hypertension Respiratory History: Other Endocrine Medical History: Diabetes Type II, Other Musculoskeletal History: Osteoarthritis GI Medical History: Polyps History: Other Psycho-Social History: No Pertinent History Male Reproductive Disorders: No Pertinent History Other Medical History: gout, kidney stones, BPH - Past Surgical History Past Surgical History: Yes Neuro Surgical History: No Pertinent History Cardiac: No Pertinent History Respiratory: No Pertinent History Gastrointestinal: No Pertinent History Genitourinary: No Pertinent History Musculoskeletal: Orthopedic Surgery Male Surgical History: No Pertinent History Other Surgical History: right rotator cuff, right hip replacement, melanoma right shoulder. c6 herniated repair, c7 ruptured repair, sinus surgery, aneurysm- femoral artery, aneurysm left femoral, rt internal iliac, abd aorta. mohs surgery x2, 2 left knee scopes, 1 right knee scope - Social History Smoking Status: Never smoker Exposure to second hand smoke: No Drug Use: none Patient Lives Alone: No Significant Family History: no pertinent family hx - Nursing Vital Signs Nursing Vital Signs: Initial Vital Signs Temperature 96.6 F 09/03/22 08:02 Pulse Rate 60 09/03/22 08:02 Respiratory Rate 18 09/03/22 08:02 Blood Pressure 181/86 09/03/22 08:02 O2 Sat by Pulse Oximetry 96 09/03/22 08:02 Pain Scale Pain Intensity 0 - Physical Exam General Appearance: no apparent distress, alert Eye Exam: PERRL/EOMI Ears, Nose, Throat Exam: normal ENT inspection Neck Exam: normal inspection, full range of motion Respiratory Exam: normal breath sounds, lungs clear Cardiovascular Exam: regular rate/rhythm, normal heart sounds Gastrointestinal/Abdomen Exam: soft, normal bowel sounds, tenderness (Left flank) Back Exam: normal inspection, decreased range of motion, muscle spasm (Left lumbar paraspinal area and left sacroiliac area.) Extremity Exam: normal inspection, normal range of motion, other (Negative straight leg raising test on the left at 90 degrees) Neurologic Exam: alert, oriented x 3, cooperative Skin Exam: normal color SpO2 Interpretation: normal SpO2: 98 O2 Delivery: Room Air Ordered Tests: Active Orders 24 hr Category Date Time Status IV Insertion STAT Care 09/03/22 08:25 Active ABDOMEN AND PELVIS W/0 CONTRAS [CT] Stat Exams 09/03/22 08:25 Completed CTA ABD/PEL W FEM RUNOFF [CT] Stat Exams 09/03/22 12:11 Completed LUMBAR SPINE W/O [CT] Stat Exams 09/03/22 08:43 Completed AMYLASE Stat Lab 09/03/22 08:37 Completed CBC W DIFF Stat Lab 09/03/22 08:37 Completed CMP Stat Lab 09/03/22 08:37 Completed LIPASE Stat Lab 09/03/22 08:37 Completed UA W/RFX UR CULTURE Stat Lab 09/03/22 10:05 Completed Medication Summary Discontinued Medications Generic Name Dose Route Start Last Admin Trade Name Kelly PRN Reason Stop Dose Admin Sodium Chloride 500 mls @ 500 mls/hr 09/03/22 12:12 09/03/22 14:49 Sodium Chloride 0.9% 500 Ml IV 09/03/22 13:11 Infused .Q1H ONE Infusion Sodium Chloride Confirm 09/03/22 13:31 Sodium Chloride 0.9% 500 Ml Administered 09/03/22 13:32 Dose 500 mls @ ud IV .STK-MED ONE Morphine Sulfate 4 mg 09/03/22 08:43 09/03/22 09:03 Morphine Sulfate 4 Mg/Ml Injection IV 09/03/22 08:44 4 mg STAT ONE Administration Morphine Sulfate Confirm 09/03/22 08:53 Morphine Sulfate 4 Mg/Ml Injection Administered 09/03/22 08:54 Dose 4 mg .ROUTE .STK-MED ONE Ondansetron HCl 4 mg 09/03/22 08:43 09/03/22 09:01 Ondansetron Hcl 4 Mg/2 Ml Vial IV 09/03/22 08:44 4 mg STAT ONE Administration Ondansetron HCl Confirm 09/03/22 08:53 Ondansetron Hcl 4 Mg/2 Ml Vial Administered 09/03/22 08:54 Dose 4 mg .ROUTE .STK-MED ONE Lab/Rad Data: Laboratory Result Diagrams 09/03/22 08:37 09/03/22 08:37 Laboratory Results 09/03/22 09/03/22 09/03/22 Range/Units 10:05 08:37 08:37 WBC 7.7 (4.0-10.5) x10^3/uL RBC 3.96 L (4.1-5.6) x10^6/uL Hgb 12.4 L (12.5-18.0) g/dL Hct 38.2 L (42-50) % MCV 96.5 (78-100) fL MCH 31.3 (26-32) pg MCHC 32.5 (32-36) g/dL RDW 14.1 H (11.5-14.0) % Plt Count 177 (150-450) x10^3/uL MPV 10.7 (7.5-11.0) fL Gran % 63.9 (36.0-66.0) % Immature Gran % (Auto) 0.9 H (0.00-0.4) % Nucleat RBC Rel Count 0.0 (0.00-0.1) % Eos # (Auto) 0.06 (0-0.5) x10^3/uL Immature Gran # (Auto) 0.07 H (0.00-0.03) x10^3u/L Absolute Lymphs (auto) 1.93 (1.0-4.6) x10^3/uL Absolute Monos (auto) 0.69 (0.0-1.3) x10^3/uL Absolute Nucleated RBC 0.00 (0.00-0.01) x10^3u/L Lymphocytes % 25.0 (24.0-44.0) % Monocytes % 8.9 (0.0-12.0) % Eosinophils % 0.8 (0.00-5.0) % Basophils % 0.5 (0.0-0.4) % Absolute Granulocytes 4.93 (1.4-6.9) x10^3/uL Basophils # 0.04 (0-0.4) x10^3/uL Sodium 136 L (137-145) mmol/L Potassium 3.5 (3.5-5.1) mmol/L Chloride 100 (98-107) mmol/L Carbon Dioxide 29 (22-30) mmol/L Anion Gap 10.6 (5-15) MEQ/L BUN 27 H (9-20) mg/dL Creatinine 0.73 (0.66-1.25) mg/dL Estimated GFR > 60.0 ML/MIN Glucose 133 H (74-106) mg/dL Calcium 9.1 (8.4-10.2) mg/dL Total Bilirubin 0.60 (0.2-1.3) mg/dL AST 27 (17-59) U/L ALT 41 (0-50) U/L Alkaline Phosphatase 76 (38-126) U/L Serum Total Protein 6.9 (6.3-8.2) g/dL Albumin 4.0 (3.5-5.0) g/dL Amylase 66 (30-110) U/L Lipase 182 (23-300) U/L Urine Color Yellow (Yellow) Urine Appearance HAZY (Clear) Urine pH 8.0 (4.6-8.0) Ur Specific [place] 1.010 (1.005-1.030) Urine Protein Negative (Negative) Urine Glucose (UA) Negative (Negative) mg/dL Urine Ketones Negative (Negative) Urine Blood Large A (Negative) Urine Nitrite Negative (Negative) Urine Bilirubin Negative (Negative) Urine Urobilinogen 0.2 (0.2) mg/dL Ur Leukocyte Esterase Trace A (Negative) U Hyaline Cast (Auto) NONE SEEN (0-2) /LPF Urine Microscopic RBC >100 A (0-5) /HPF Urine Microscopic WBC 0-2 (0-5) /HPF Ur Epithelial Cells None Seen (None Seen) /HPF Urine Bacteria None Seen (None Seen) /HPF Urine Culture Reflexed NO (NO) - Progress Progress: improved, re-examined Progress Note: 09/03/22 10:04 81 years old male with multiple medical problems including back pain presented in the ER with chief complaint of left flank/back pain for the last few days with progressive worsening. Patient was seen outpatient and was given tramadol with no significant relief and pain got really worse this morning. Patient reports moderate to severe sharp pain right flank along lumbar paraspinal area. Denies any radiation to left lower extremity. No numbness tingling or weakness of lower extremities. Denies any loss of bowel or bladder control/perineal numbness. Patient did notice some hematuria this morning. Reports symptoms similar to last time when he had a kidney stone. 09/03/22 12:40 Is given pain medication for symptomatic relief, feeling better but pain is not completely resolved. Work-up showed normal white count, no acute renal failure. No definite of UTI, does have blood in urine. Obtained CT abdomen pelvis without contrast which showed right-sided calyceal stone about 15 x 12 mm causing obstructive uropathy with moderate hydronephrosis with mild perinephric fat stranding. Patient does not have any obstructive stone on the left side. CT also showed endovascular stenting for aneurysm without any obvious para- aortic collection but did notice some cystic structure posterior to bladder which needs further evaluation with CTA which is pending now. This could be the cause of his pain. CT lumbar spine showed multilevel degenerative changes and L3-L4 level disc herniation/protrusion about 6 mm but patient is ambulating in the ER from his room to bathroom without any limitations. Has intact neuro exam in lower extremities. No perineal numbness. Do not think patient has cauda equina. 09/03/22 15:25 I have obtained CTA runoff which did not show any aneurysmal leak. 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 No active bleed/leak. Patient is feeling much better on reevaluation. No difficulty ambulation. I believe patient has low back pain on the left side secondary to small disc herniation and is having hematuria from large stone on the right side. Patient does follow-up with Dr. Sy urologist at [place]. I have called [facility] transfer center and have discussed with Dr. Astudillo, reviewed history work-up including CT findings, agreed with transfer. I have discussed in detail the results of work-up and plan of transfer with patient and family who understand and agree with it. Discussed with Dr.: Other (Dr. Astudillo [facility] at 1525) Counseled pt/family regarding: lab results, diagnosis, need for follow-up Medical Desision Making - Independent Historian Additional History obtained from: Spouse - Discussion of managment Care discussed with:: on-call "doc" (Dr. Astudillo [facility] ER 1525) Reviewed:: Test results Agreed on:: Treatment plan Will see patient: in ED - Diagnostic Testing Diagnostic test were ordered, analyzed, and reviewed by me: Yes Radiological Interpretation: Reviewed by me, Teleradiologist Report - Risk of complications The pt has a high risk of morbidity or mortality based on: Decision regarding hospitilization or escalation of hosp level of care - Departure Departure Disposition: Transfer Clinical Impression: Obstructive uropathy, Lumbar disc herniation Condition: Stable Critical Care Time: No Referrals: JOSIAS DELEON MD [Primary Care Provider] - Follow up/PCP as directed
[2022-09-03 10:24] LABS: Bacteria None Seen /HPF (None Seen); Bilirubin Negative (Negative); Blood Large (Negative); Epithelial Cells None Seen /HPF (None Seen); Glucose, Urine Negative (Negative); Hyaline Casts NONE SEEN /LPF (0-2); Ketones Negative (Negative); Leukocyte Esterase Trace (Negative); Nitrite Negative (Negative); Protein,Urine Dip Negative (Negative); RBC >100 /HPF (0-5); Urobilinogen 0.2 mg/dL (0.2); WBC 0-2 /HPF (0-5)
[2022-09-03 10:33] LABS: ADD URINE CULTURE? NO (NO); Appearance HAZY (Clear)
--- NOTE | 2022-09-03 11:46 | XRAY ---
CLINICAL HISTORY:LEFT FLANK PAIN; HISTORY OF STONES COMPARISON:None. TECHNIQUE:CT of the abdomen and pelvis was performed in axial plane with sagittal and coronal reconstruction images without oral or intravenous contrast. FINDINGS: The kidneys appear unremarkable with no masses. A 15x12 mm (1480 HU )obstructing stone is noted in the right renal pelvis causing moderate hydronephrosis. Mild perinephric fat stranding is seen. Left renal midcalyceal non obstructive calculus is seen measurinng 3 m (345 HU). No hydronephrosis or hydroureter is noted in the left kidney. Two simple cortical cysts are seen in the right kidney. The larger on at mid pole measures 5.9 x 5.8cm. A small cyst measuring 1.2 x 1.0cm is seen at lower pole of left kidney. The adrenal glands are normal. Endovascular aortic repair graft is seen extending to the both iliac vessels. No obvious paraaortic collection is noted. There is large, well defined, cystic structure seen posterior to the urinary bladder. It shows few interrupted peripheral foci of calcification. It appears carlos in communication to the left iliac artery - possible aneurysmal dilatation. It measures 8.5 x 8.0cm Multiple metallic densities causing artifacts are seen in the pelvis on the left side, obscuring the normal underlying anatomical details. Right hip prosthesis is also causing artifacts in the pelvic region. The liver is normal in size, morphology and appears unremarkable with no intrahepatic or extrahepatic bile duct dilation. Unremarkable appearing gallbladder with no stones wall thickening or pericholecystic inflammatory changes or fluid. Unremarkable appearing pancreas.No pancreatic mass or ductal dilatation is seen. Unremarkable appearing spleen. Tiny calcified granulomas are seen in spleen. The stomach appears unremarkable. Small bowel appears unremrakable. Multiple colonic diverticula are seen, No evidence of diverticultis. No free air and no ascites. No free intraperitoneal air is seen. Bladder is unremarkable with no stones. Right inguinal fat-containing hernia is noted. Degenerative changes are seen in the visualized spine. No other bony abnormality detected. Visualized lung bases show right basal atelectatic plates with elevaed right diaphragmatic cupola. IMPRESSION: 1. Obstructing calculus in right renal pelvis causing moderate hydronephrosis. 2. Non-obstructing left renal calculus. 3. Bilateral renal cortical cysts. 4. Endovascular aortic repair graft is seen extending to the both iliac vessels. No obvious paraaortic collection. 5. Large, well defined, cystic structure seen posterior to the urinary bladder. It shows few interrupted peripheral foci of calcification. It appears carlos in communication to the left iliac artery - possible aneurysmal dilatation. 6. Suggested CT angiography for further evaluation. Electronically Signed by: Afshan Mcmahon MD. (09/03/2022 10:45:50 [employer]ON P[employer]LET [employer])
--- NOTE | 2022-09-03 12:02 | XRAY ---
CLINICAL HISTORY:low back pain COMPARISON:None TECHNIQUE:CT scan of lumbar spine done. Axial images obtained with reformatted coronal and sagittal images and submitted for interpretation. FINDINGS: Preserved physiological lumbar lordosis. Bridging osteophytes are seen along the anterolateral margin of vertebral bodies. Facet joint arthrosis is noted at all the lumbar levels. Vaccum phenomenon is seen at L3-4 level. Normal vertebral bodies height and alignment. Intact vertebral bodies and neural arches. No definite fractures could be detected. Segmental disc analysis level by level: L1- L2: There is no significant disc herniation or neural foraminal narrowing visualized. Central canal is unremarkable. No sign of lateral recess stenosis. Nerve roots are normal. L2- L3: There is 2.5mm diffuse disc herniation seen encroaching the bilateral neural foramen. No spinal stenosis L3- L4: There is diffuse disc herniation and left foraminal protrusion seen, causing moderate narrowing of neural foramen, more on left side. Disc protrusion measures 6mm. L4- L5: There is 3mm diffuse disc herniation is seen encroaching the bilateral neural foramen. L5- S1: There is 2mm diffuse disc herniation seen. No retro paraspinal soft tissue masses. No developmental canal stenosis. Endovascular aortic repair graft is seen. IMPRESSION: Lumbar spondylodegenerative changes. Multilevel disc herniations as described above. Significant changes noted at L3-4 level with left foraminal disc protrusion causing moderate narrowing of neural foramen. Suggested MRI spine for further evaluation. Electronically Signed by: Afshan Mcmahon MD. (09/03/2022 11:01:03 [employer])
[2022-09-03] MEDS ORDERED: Sodium Chloride 0.9% 500 ML 500 ML IV ONE ×2 (12:12→13:31)
--- NOTE | 2022-09-03 14:20 | XRAY ---
CLINICAL HISTORY:r/o aneurysmal leak COMPARISON:None. TECHNIQUE:CT scan of the abdomen and pelvis was performed with IV contrast. 100 ml of Inj. Omnipaque (350 mg/ 100ml) was administered as intravenous contrast agent. Coronal and sagittal reconstructive images were also obtained. FINDINGS: Endovascular aortic aneurysmal repair graft is seen extending to the iliac vessels. Contrast is seen opacifying the aorta and iliac vessles. No evidence of leakage, rupture or dissection is noted. Celiac artery, superior and inferior mesenteric, both renal and common iliac arteries are opacified and appears normal. Both common femoral, femoral and popliteal vessels are opacified and appears normal. The right distal popliteal, tibioperoneal trunk, posterior tibial and peroneal arteries are not opacifed with contrast. The left tibioperoneal trunk and only proximal part of posterior tibial artery and peroneal arteries are opacified with contrast. Atheromatous calcific plaques are seen involving the aorta, common iliac, femoral, popliteal and Left total knee replacement is seen. There is large, well defined, cystic structure seen posterior to the urinary bladder. It shows few interrupted peripheral foci of calcification. It appears carlos in communication to the left external iliac artery - It shows no filling with contrast material. possible thrombosed aneurysm. It measures 8.5 x 8.0cm. IMPRESSION: Endovascular aortic aneurysmal repair graft is seen extending to the iliac vessels. Contrast is seen opacifying the aorta and iliac vessles. No evidence of leakage, rupture or dissection is noted. The right distal popliteal, tibioperoneal trunk, posterior tibial and peroneal arteries are not opacifed with contrast. Thus may be due to a delayed bolus. The left tibioperoneal trunk and only proximal part of posterior tibial artery and peroneal arteries are opacified with contrast. Mid and distal part of vessels are not opacified, possibly due to poor bonus timing. Large, well defined, cystic structure seen posterior to the urinary bladder. It shows few interrupted peripheral foci of calcification. It appears carlos in communication to the left iliac artery - It shows no filling with contrast material. possible thrombosed aneurysm. Electronically Signed by: Afshan Mcmahon MD. (09/03/2022 13:18:18 LUMBER ESTIMATOR)
[2022-09-03 16:01] VITALS: BP 172/88; PULSE 59; O2SAT 95
== END 2022-09-03 16:09 | disposition short-term general hospital (02) ==
LOC: ED 07:48
DX: N13.2 Hydronephrosis with renal and ureteral calculous obstruction (principal); M51.26 Other intervertebral disc displacement, lumbar region; R10.9 Unspecified abdominal pain; R31.9 Hematuria, unspecified; E78.5 Hyperlipidemia, unspecified; I10 Essential (primary) hypertension; E11.9 Type 2 diabetes mellitus without complications; Z79.84 Long term (current) use of oral hypoglycemic drugs; Z79.899 Other long term (current) drug therapy
CPT/HCPCS: 36000; 36415; 72131; 74176; 75635; 80053; 81001; 82150; 83690; 85025; 96360; 96374; 96375; 99285; J2270; J2405

== ENCOUNTER 2022-10-04 07:00 | Day surgery (SDC) | payer MEDICARE, OTHER ==
[2012-02-01 10:02] VITALS: BP 138/76
[2022-10-04] MEDS ORDERED: XYLOCAINE 1% HCL 20 ML MDV IJ ONE (07:01)
[2022-10-04] MEDS ORDERED: Depo-Medrol 40 MG/ML IM ONE (07:01)
[2022-10-04] MEDS ORDERED: LIDOCAINE HCL 2% 100 MG/5 ML IJ ONE (07:01)
[2022-10-04] MEDS ORDERED: DIPRIVAN 200 MG/20 ML IV ONE (08:09)
--- NOTE | 2022-10-04 10:53 | XRAY ---
Indication: Bilateral L4-S1 MBB. Intraoperative fluoroscopy provided for 31 seconds. 2 digital spot images submitted for interpretation demonstrates posterior needle tips projecting over the expected left and right L4-S1 nerve roots. Correlate with intraoperative findings/report. Incidental incompletely visualized aortobiiliac stents.
[2022-10-04] MEDS ORDERED: Lactated Ringers 1,000 ML IV ONE (11:04)
--- NOTE | 2022-10-04 13:36 | XRAY ---
31 seconds of fluoroscopy was used in surgery for a bilateral L4-S1 MBB.
== END 2022-10-04 09:33 | disposition home or self-care (01) ==
LOC: SDC-PAIN 07:00
PROVIDERS: ATTEND Psychiatry & Neurology Pain Medicine
DX: M47.816 Spondylosis without myelopathy or radiculopathy, lumbar region (principal); E11.9 Type 2 diabetes mellitus without complications; Z79.899 Other long term (current) drug therapy
CPT/HCPCS: 64493; 64494; 72020; 77002; 82947; J1030; J2704

== ENCOUNTER 2022-10-18 09:03 | Day surgery (SDC) | payer MEDICARE, OTHER ==
[2012-02-01 10:02] VITALS: BP 138/76
[2022-10-18] MEDS ORDERED: BUPIVACAINE 0.5% VIAL IJ ONE (09:04)
[2022-10-18] MEDS ORDERED: Depo-Medrol 40 MG/ML IM ONE (09:04)
[2022-10-18] MEDS ORDERED: LIDOCAINE HCL 1% 50 MG/5 ML VL PF IJ ONE (09:04)
--- NOTE | 2022-10-18 12:20 | XRAY ---
Indication: Bilateral L4-S1 MBB. Intraoperative fluoroscopy provided for 28 seconds. 2 digital spot image submitted for interpretation demonstrates posterior needle tips projecting over the expected left and right L4-S1 nerve roots. Correlate with intraoperative findings/report. Incidental incompletely visualized aortobiiliac stents.
--- NOTE | 2022-10-18 12:27 | XRAY ---
28 seconds of fluoroscopy was used in surgery for a bilateral L4-S1 MBB.
== END 2022-10-18 11:22 | disposition home or self-care (01) ==
LOC: SDC-PAIN 09:03
PROVIDERS: ATTEND Psychiatry & Neurology Pain Medicine
DX: M47.816 Spondylosis without myelopathy or radiculopathy, lumbar region (principal); E11.9 Type 2 diabetes mellitus without complications; Z79.899 Other long term (current) drug therapy
CPT/HCPCS: 64493; 64494; 72020; 77002; 82947; J1030; J2001

== ENCOUNTER 2022-11-22 07:58 | Day surgery (SDC) | payer MEDICARE, OTHER ==
[2012-02-01 10:02] VITALS: BP 138/76
[2022-11-22] MEDS ORDERED: BUPIVACAINE 0.5% VIAL IJ ONE (07:59)
[2022-11-22] MEDS ORDERED: LIDOCAINE HCL 1% 50 MG/5 ML VL PF IJ ONE (07:59)
[2022-11-22] MEDS ORDERED: Depo-Medrol 40 MG/ML IM ONE (07:59)
[2022-11-22] MEDS ORDERED: DIPRIVAN 200 MG/20 ML IV ONE (08:52)
[2022-11-22] MEDS ORDERED: Lactated Ringers 1,000 ML IV ONE (09:20)
--- NOTE | 2022-11-22 12:04 | XRAY ---
Indication: Right L4-S1 RFA. Intraoperative fluoroscopy provided for 22 seconds. 4 digital spot image submitted for interpretation demonstrates posterior needle tips projecting over the expected right L4-S1 nerve roots. Correlate with intraoperative findings/report. Incidental incompletely visualized aortobiiliac stents.
--- NOTE | 2022-11-22 12:10 | XRAY ---
22 seconds of fluoroscopy was used in surgery for a right L4-S1 RFA.
== END 2022-11-22 09:26 | disposition home or self-care (01) ==
LOC: SDC-PAIN 07:58
PROVIDERS: ATTEND Psychiatry & Neurology Pain Medicine
DX: M47.816 Spondylosis without myelopathy or radiculopathy, lumbar region (principal); E11.9 Type 2 diabetes mellitus without complications; Z79.899 Other long term (current) drug therapy
CPT/HCPCS: 64635; 64636; 72100; 77002; 82947; 99100; J1030; J2001; J2704